=== PATIENT | female | born 1995 | race African-American/Black ===

== ENCOUNTER 2017-02-13 21:05 | Emergency (ER) | payer MEDICAID ==
[~2017-02-13] VITALS: Ht 152.4 cm; Wt 42.0 kg
[~2017-02-13 21:05] MED LIST: IRON
[2017-02-13 22:45] VITALS: BP 123/58
[2017-02-13] MEDS ORDERED: ACETAMINOPHEN 325MG TABLET PO ONE (22:45)
[2017-02-13 23:32] LABS: HCG SCREEN POSITIVE
[2017-02-13 23:40] LABS: CLARITY URINE CLEAR (CLEAR); COLOR URINE YELLOW (YELLOW); GLUCOSE URINE NEGATIVE (NEGATIVE); KETONES URINE NEGATIVE (NEGATIVE); LEUKOCYTE ESTERASE URINE 2+ (NEGATIVE); NITRITE URINE NEGATIVE (NEGATIVE); OCCULT BLOOD URINE 2+ (NEGATIVE); PH URINE 7.5 (4.5-8.0); PROTEIN URINE NEGATIVE (NEGATIVE); SPECIFIC GRAVITY URINE 1.024 (1.005-1.030)
[2017-02-14 00:13] LABS: SQUAMOUS EPITHELIAL CELL URINE FEW /lpf (RARE/1+)
[2017-02-14 00:28] LABS: BACTERIA URINE 1+
[2017-02-17 04:17] LABS: CHLAMYDIA TRACHOMATIS NAA Negative (Negative); NEISSERIA GONORRHOEAE NAA Negative (Negative)
== END 2017-02-14 01:35 | disposition home or self-care (01) ==
LOC: ER 21:06
DX: O26.899 Other specified pregnancy related conditions, unspecified trimester (principal); N76.0 Acute vaginitis
CPT/HCPCS: 81001; 84703; 87210; 87491; 87591; 99284; Z7610

== ENCOUNTER 2017-07-02 13:40 | Emergency (ER) | payer MEDICAID ==
[~2017-07-02] VITALS: Ht 152.4 cm; Wt 42.0 kg
[2017-07-02] MEDS ORDERED: ACETAMINOPHEN 325MG TABLET PO ONE (17:45)
[2017-07-02 18:01] LABS: BASOPHILS % 0.3 % (0.0-2.0); EOSINOPHILS % 1.4 % (0.0-5.0); HEMATOCRIT. 32.4 % (36.0-48.0); HEMOGLOBIN. 10.9 g/dL (12.0-16.0); LYMPHOCYTES % 23.3 % (20.0-50.0); MEAN CORPUSCULAR HEMOGLOBIN 27.9 pg (28.0-32.0); MEAN CORPUSCULAR VOLUME 82.6 fL (81.0-99.0); MEAN PLATELET VOLUME 8.9 fl (7.4-10.4); MONOCYTES % 6.1 % (2.0-8.0); NEUTROPHILS % 68.9 % (40.0-76.0); PLATELET 212 x1000/uL (130-400); RED BLOOD CELL COUNT 3.92 mill/uL (4.2-5.4); RED CELL DISTRIBUTION WIDTH 11.6 % (11.6-14.6)
[2017-07-02 18:24] LABS: CLARITY URINE CLEAR (CLEAR); COLOR URINE YELLOW (YELLOW); GLUCOSE URINE NEGATIVE (NEGATIVE); KETONES URINE TRACE (NEGATIVE); LEUKOCYTE ESTERASE URINE 1+ (NEGATIVE); NITRITE URINE NEGATIVE (NEGATIVE); OCCULT BLOOD URINE NEGATIVE (NEGATIVE); PROTEIN URINE NEGATIVE (NEGATIVE); SPECIFIC GRAVITY URINE 1.017 (1.005-1.030); UROBILINOGEN URINE 0.2 E.U./dL (0.2-1.0)
[2017-07-02 20:10] VITALS: BP 107/55
== END 2017-07-02 20:23 | disposition home or self-care (01) ==
LOC: ER 15:23
DX: O23.42 Unspecified infection of urinary tract in pregnancy, second trimester (principal); N39.0 Urinary tract infection, site not specified; Z3A.17 17 weeks gestation of pregnancy
CPT/HCPCS: 36415; 76805; 81001; 81025; 84702; 85025; 99285; Z7610

== ENCOUNTER 2017-08-02 10:48 | Observation (INO) | payer OTHER, MEDICAID ==
[2017-08-02] MEDS ORDERED: PNV1TABL76 MT (12:09)
== END 2017-08-02 12:00 | disposition home or self-care (01) ==
LOC: L&D 10:48
PROVIDERS: ADMIT Obstetrics & Gynecology; ATTEND Obstetrics & Gynecology
DX: O36.8120 Decreased fetal movements, second trimester, not applicable or unspecified (principal); O26.892 Other specified pregnancy related conditions, second trimester; R10.9 Unspecified abdominal pain; Z3A.21 21 weeks gestation of pregnancy
CPT/HCPCS: 99281; G0378

== ENCOUNTER 2017-09-28 17:49 | Emergency (ER) | payer MEDICAID ==
[~2017-09-28] VITALS: Ht 162.6 cm; Wt 47.0 kg
[~2017-09-28 17:49] MED LIST changes: +PNV1TABL76 MT
[2017-09-28] MEDS ORDERED: FAMOTIDINE 20MG/2ML VIAL IV STA (18:19)
[2017-09-28] MEDS ORDERED: ONDANSETRON HCL 4MG/2ML VIAL IV STA (18:19)
[2017-09-28] MEDS ORDERED: MAGNESIUM/ALUMINUM HYDROXIDE/SIMETHICONE 30ML UDC PO STA (18:19)
[2017-09-28] MEDS ORDERED: SODIUM CHLORIDE 0.9% 1,000 ML IV ONE (18:19)
[2017-09-28] MEDS ORDERED: MORPHINE SULFATE 4 MG/ML CPJ (NOT FOR IM USE) IV ONE (18:30)
[2017-09-28] MEDS ORDERED: MORPHINE SULFATE 10 MG/ML CPJ ONE (19:08)
[2017-09-28 19:21] LABS: BASOPHILS % 0.3 % (0.0-2.0); EOSINOPHILS % 0.6 % (0.0-5.0); HEMATOCRIT. 32.7 % (36.0-48.0); HEMOGLOBIN. 10.9 g/dL (12.0-16.0); LYMPHOCYTES % 15.2 % (20.0-50.0); MEAN CORPUSCULAR HEMOGLOBIN 28.4 pg (28.0-32.0); MEAN CORPUSCULAR VOLUME 85.2 fL (81.0-99.0); MEAN PLATELET VOLUME 10.1 fl (7.4-10.4); MONOCYTES % 4.7 % (2.0-8.0); NEUTROPHILS % 79.2 % (40.0-76.0); PLATELET 145 x1000/uL (130-400); RED BLOOD CELL COUNT 3.84 mill/uL (4.2-5.4); RED CELL DISTRIBUTION WIDTH 12.4 % (11.6-14.6)
[2017-09-28 19:36] LABS: CARBON DIOXIDE 21 mEq/L (21-32); CHLORIDE 106 mEq/L (98-107); TROPONIN I < 0.02 ng/mL (0.00-0.04)
[2017-09-28 19:37] LABS: D-DIMER 5.8 mg/L FEU (<0.50); INR 0.9; PROTHROMBIN TIME 9.6 sec (9.4-11.6)
[2017-09-28 19:49] LABS: B-HCG QUANTITATIVE 85220 mIU/mL (<3)
[2017-09-28 22:36] LABS: CLARITY URINE CLEAR (CLEAR); COLOR URINE YELLOW (YELLOW); GLUCOSE URINE NEGATIVE (NEGATIVE); KETONES URINE NEGATIVE (NEGATIVE); LEUKOCYTE ESTERASE URINE NEGATIVE (NEGATIVE); NITRITE URINE NEGATIVE (NEGATIVE); OCCULT BLOOD URINE TRACE (NEGATIVE); PROTEIN URINE 2+ (NEGATIVE); SPECIFIC GRAVITY URINE 1.011 (1.005-1.030); UROBILINOGEN URINE 0.2 E.U./dL (0.2-1.0)
[2017-09-28] MEDS ORDERED: ONDANSETRON HCL 4MG/2ML VIAL IV ONE (22:45)
[2017-09-28] MEDS ORDERED: BUTORPHANOL TARTRATE 2 MG/ML VIAL IM ONE (22:45)
[2017-09-28 22:46] LABS: *AMPHETAMINES SCREEN URINE NEGATIVE (NEGATIVE); *BARBITURATES SCREEN URINE NEGATIVE (NEGATIVE); *BENZODIAZEPINES SCREEN URINE NEGATIVE (NEGATIVE); *COCAINE SCREEN URINE NEGATIVE (NEGATIVE); CANNABINOID URINE SCREEN NEGATIVE (NEGATIVE); METHADONE URINE SCREEN NEGATIVE (NEGATIVE); PHENCYCLIDINE URINE SCREEN NEGATIVE (NEGATIVE)
[2017-09-28 23:06] LABS: OPIATES URINE SCREEN PRESUMTIVE POSITIVE (NEGATIVE)
[2017-09-28 23:45] VITALS: BP 116/79
== END 2017-09-28 23:55 | disposition home or self-care (01) ==
LOC: ER 18:31
DX: O99.613 Diseases of the digestive system complicating pregnancy, third trimester (principal); O20.0 Threatened abortion; Z3A.30 30 weeks gestation of pregnancy
CPT/HCPCS: 36415; 76705; 76805; 80053; 80305; 81001; 83690; 83880; 84484; 84702; 85025; 85379; 85610; 86886; 86901; 93005; 96361; 96365; 96372; 96375; 96376; 99285; J0595; J2270; J2405; J3490; J7030

== ENCOUNTER 2017-10-16 16:22 | Inpatient (IN) | payer MEDICAID ==
[~2017-10-16] VITALS: Ht 165.1 cm; Wt 50.3 kg
[2017-10-16] MEDS ORDERED: ACETAMINOPHEN 500MG TABLET PO NR (17:00)
[2017-10-16] MEDS: LACTATED RINGERS 1,000 ML IV SCH (17:13)
[2017-10-16 17:25] LABS: BASOPHILS % 0.5 % (0.0-2.0); EOSINOPHILS % 0.6 % (0.0-5.0); HEMATOCRIT. 38.2 % (36.0-48.0); HEMOGLOBIN. 12.8 g/dL (12.0-16.0); LYMPHOCYTES % 24.5 % (20.0-50.0); MEAN CORPUSCULAR HEMOGLOBIN 28.5 pg (28.0-32.0); MEAN CORPUSCULAR VOLUME 85.2 fL (81.0-99.0); MEAN PLATELET VOLUME 10.5 fl (7.4-10.4); NEUTROPHILS % 68.4 % (40.0-76.0); PLATELET 179 x1000/uL (130-400); RED BLOOD CELL COUNT 4.48 mill/uL (4.2-5.4); RED CELL DISTRIBUTION WIDTH 12.9 % (11.6-14.6)
[2017-10-16 17:26] LABS: CLARITY URINE CLOUDY (CLEAR); COLOR URINE YELLOW (YELLOW); KETONES URINE NEGATIVE (NEGATIVE); LEUKOCYTE ESTERASE URINE NEGATIVE (NEGATIVE); NITRITE URINE NEGATIVE (NEGATIVE); OCCULT BLOOD URINE 1+ (NEGATIVE); PH URINE 5.5 (4.5-8.0); PROTEIN URINE 4+ (NEGATIVE); UROBILINOGEN URINE 0.2 E.U./dL (0.2-1.0)
[2017-10-16 17:28] LABS: CHLORIDE 106 mEq/L (98-107)
[2017-10-16 17:30] LABS: INR 0.9; PARTIAL THROMBOPLASTIN TIME 27.9 sec (23.4-31.0); PROTHROMBIN TIME 9.7 sec (9.4-11.6)
[2017-10-16 17:33] LABS: CARBON DIOXIDE 24 mEq/L (21-32)
[2017-10-16 17:37] LABS: *AMPHETAMINES SCREEN URINE NEGATIVE (NEGATIVE); *BARBITURATES SCREEN URINE NEGATIVE (NEGATIVE); *BENZODIAZEPINES SCREEN URINE NEGATIVE (NEGATIVE); *COCAINE SCREEN URINE NEGATIVE (NEGATIVE); CANNABINOID URINE SCREEN NEGATIVE (NEGATIVE); METHADONE URINE SCREEN NEGATIVE (NEGATIVE); OPIATES URINE SCREEN NEGATIVE (NEGATIVE); PHENCYCLIDINE URINE SCREEN NEGATIVE (NEGATIVE)
[2017-10-16] MEDS ORDERED: LABETALOL 5MG/ML SYR 20 MG/4 ML SYRINGE IV NR (17:45)
[2017-10-16] MEDS ORDERED: MAGNESIUM 4 G PREMIX 100 ML IV NR (17:51)
[2017-10-16] MEDS ORDERED: BETAMETHASONE ACET/BETAMET 30 MG/5 ML VIAL IM NR (18:00)
[2017-10-16] MEDS: MAGNESIUM 20 G PREMIX (L & D) 500 ML IV SCH (18:40)
[2017-10-16] MEDS: LABETALOL HCL 20MG/4ML CARPUJECT IV PRN (20:52)
[2017-10-16 23:20] LABS: HEPATITIS B SURFACE ANTIGEN NEGATIVE; RUBELLA IGG 27.7 IU/mL (4.99-10)
[2017-10-17] MEDS: ACETAMINOPHEN 325MG TABLET PO PRN ×2 (05:28→11:30)
[2017-10-17] MEDS: MAGNESIUM 20 G PREMIX (L & D) 500 ML IV SCH (08:40)
[2017-10-17] MEDS: LABETALOL HCL 100MG TABLET PO SCH ×2 (13:42→20:44)
[2017-10-17] MEDS ORDERED: BETAMETHASONE ACET/BETAMET 30 MG/5 ML VIAL IM NR (18:00)
[2017-10-17 18:09] LABS: CREATININE URINE (RAW) 46.4 mg/dl
[2017-10-17] MEDS: LACTATED RINGERS 1,000 ML IV SCH (18:52)
[2017-10-18] MEDS: LACTATED RINGERS 1,000 ML IV SCH ×2 (03:29→21:04)
[2017-10-18 05:06] LABS: HEMATOCRIT 30.9 % (36.0-48.0); HEMOGLOBIN 10.1 g/dL (12.0-16.0); MEAN CORPUSCULAR HEMOGLOBIN 27.9 pg (28.0-32.0); MEAN CORPUSCULAR VOLUME 85.3 fL (81.0-99.0); PLATELET 185 x1000/uL (130-400); RED BLOOD CELL COUNT 3.63 mill/uL (4.2-5.4); RED CELL DISTRIBUTION WIDTH 12.8 % (11.6-14.6)
[2017-10-18 05:22] LABS: CARBON DIOXIDE 26 mEq/L (21-32); CHLORIDE 105 mEq/L (98-107)
[2017-10-18] MEDS: LABETALOL HCL 100MG TABLET PO SCH ×2 (08:59→21:04)
[2017-10-18] MEDS: ACETAMINOPHEN 325MG TABLET PO PRN (15:06)
[2017-10-18 19:03] LABS: CLARITY URINE CLEAR (CLEAR); COLOR URINE YELLOW (YELLOW); KETONES URINE NEGATIVE (NEGATIVE); LEUKOCYTE ESTERASE URINE NEGATIVE (NEGATIVE); NITRITE URINE NEGATIVE (NEGATIVE); OCCULT BLOOD URINE 3+ (NEGATIVE); PROTEIN URINE 4+ (NEGATIVE); SPECIFIC GRAVITY URINE 1.023 (1.005-1.030); UROBILINOGEN URINE 0.2 E.U./dL (0.2-1.0)
[2017-10-18] MEDS: LABETALOL HCL 20MG/4ML CARPUJECT IV PRN (19:05)
[2017-10-18] MEDS ORDERED: DIPHENHYDRAMINE HCL/ZINC ACET 28 GM CREAM TOP PRN (22:00)
[2017-10-19] MEDS: MAGNESIUM 20 G PREMIX (L & D) 500 ML IV SCH (03:43)
[2017-10-19 04:14] LABS: HEMATOCRIT. 32.2 % (36.0-48.0); HEMOGLOBIN. 10.5 g/dL (12.0-16.0); MEAN CORPUSCULAR HEMOGLOBIN 27.7 pg (28.0-32.0); PLATELET 176 x1000/uL (130-400); RED BLOOD CELL COUNT 3.78 mill/uL (4.2-5.4); RED CELL DISTRIBUTION WIDTH 13.1 % (11.6-14.6)
[2017-10-19 04:48] LABS: CARBON DIOXIDE 27 mEq/L (21-32); CHLORIDE 107 mEq/L (98-107)
[2017-10-19] MEDS: LACTATED RINGERS 1,000 ML IV SCH ×2 (06:14→15:13)
[2017-10-19] MEDS: LABETALOL HCL 100MG TABLET PO SCH ×2 (08:30→21:12)
[2017-10-19] MEDS: LABETALOL HCL 20MG/4ML CARPUJECT IV PRN ×3 (11:53→22:43)
[2017-10-19 13:43] LABS: PLATELET ESTIMATE NORMAL
[2017-10-19] MEDS: ACETAMINOPHEN 325MG TABLET PO PRN (17:58)
[2017-10-19] MEDS ORDERED: GLYCERIN/WITCH HAZEL LEAF MEDICATED PAD TOP PRN (21:45)
[2017-10-19] MEDS: BENZOCAINE/LANOLIN/ALOE VERA SPRAY TOP PRN (22:16)
[2017-10-19] MEDS ORDERED: DIPHENHYDRAMINE 50MG/ML VIAL IV NR (23:15)
[2017-10-20] MEDS: LACTATED RINGERS 1,000 ML IV SCH (02:20)
[2017-10-20] MEDS: LABETALOL HCL 20MG/4ML CARPUJECT IV PRN ×4 (02:51→11:59)
[2017-10-20] MEDS: BENZOCAINE/LANOLIN/ALOE VERA SPRAY TOP PRN (02:52)
[2017-10-20 07:24] LABS: HEMATOCRIT 36.6 % (36.0-48.0); HEMOGLOBIN 12.2 g/dL (12.0-16.0); MEAN CORPUSCULAR HEMOGLOBIN 28.5 pg (28.0-32.0); MEAN CORPUSCULAR VOLUME 85.9 fL (81.0-99.0); PLATELET 199 x1000/uL (130-400); RED BLOOD CELL COUNT 4.26 mill/uL (4.2-5.4); RED CELL DISTRIBUTION WIDTH 12.9 % (11.6-14.6)
[2017-10-20] MEDS: LABETALOL HCL 100MG TABLET PO SCH ×2 (07:42→21:50)
[2017-10-20 07:46] LABS: CARBON DIOXIDE 24 mEq/L (21-32); CHLORIDE 104 mEq/L (98-107)
[2017-10-20] MEDS: MAGNESIUM 20 G PREMIX (L & D) 500 ML IV SCH ×2 (10:07→16:26)
[2017-10-20] MEDS ORDERED: HYDRALAZINE 20MG/ML VIAL IV NR (12:24)
[2017-10-20] MEDS ORDERED: HYDRALAZINE 20MG/ML VIAL IV PRN (12:30)
[2017-10-20] MEDS ORDERED: MORPHINE SULFATE/PF 1MG/ML 10ML AMP ONE (14:25)
[2017-10-20] MEDS ORDERED: FENTANYL CITRATE/PF 50MCG/ML 2ML VIAL ONE (14:25)
[2017-10-20] MEDS ORDERED: CEFAZOLIN SODIUM 1000MG/VIAL ONE (15:11)
[2017-10-20] MEDS ORDERED: NALOXONE HCL 0.4 MG/ML 1ML VIAL IV PRN (15:30)
[2017-10-20] MEDS ORDERED: MAGNESIUM 20 G PREMIX (L & D) 500 ML IV SCH (15:49)
[2017-10-20] MEDS ORDERED: OXYTOCIN 10 UNITS/ML 1ML ONE (15:57)
[2017-10-20] MEDS ORDERED: ONDANSETRON HCL 4MG/2ML VIAL ONE (15:57)
[2017-10-20] MEDS ORDERED: BISACODYL 10MG SUPP PR PRN (16:00)
[2017-10-20] MEDS ORDERED: KETOROLAC 30MG/ML VIAL IV SCH (16:00)
[2017-10-20] MEDS ORDERED: ONDANSETRON HCL 4MG/2ML VIAL IV PRN (16:00)
[2017-10-20] MEDS ORDERED: LANOLIN OINT 0.25 GM TUBE TOP PRN (16:00)
[2017-10-20] MEDS ORDERED: HYDROCODONE/ACETAMINOPHEN 5/325MG TABLET PO PRN (16:00)
[2017-10-20] MEDS ORDERED: DEXT 5%/LR + PITOCIN 20UNITS/L 1,000 ML IV SCH (16:30)
[2017-10-20 21:00] VITALS: BP 144/107
[2017-10-20] MEDS ORDERED: LIDOCAINE HCL 4% CREAM 76GM TUBE TP SCH (21:00)
[2017-10-20] MEDS ORDERED: DIPHENHYDRAMINE 25MG CAPSULE PO PRN (21:00)
[2017-10-20 21:30] VITALS: BP 153/110
[2017-10-20] MEDS: KETOROLAC 30MG/ML VIAL IV SCH (21:49)
[2017-10-20 22:00] VITALS: BP 155/103
[2017-10-21] VITALS (11 sets, daily range): BP systolic 120–152; BP diastolic 86–113
[2017-10-21] MEDS: KETOROLAC 30MG/ML VIAL IV SCH ×3 (04:00→14:24)
[2017-10-21] MEDS ORDERED: TETANUS, DIPHTHERIA, PERTUSSIS VAC/PF 0.5ML (>7YR OLD) IM ONE (06:00)
[2017-10-21 06:36] LABS: BASOPHILS % 0.2 % (0.0-2.0); EOSINOPHILS % 0.2 % (0.0-5.0); HEMATOCRIT. 37.5 % (36.0-48.0); HEMOGLOBIN. 12.3 g/dL (12.0-16.0); LYMPHOCYTES % 11.9 % (20.0-50.0); MEAN CORPUSCULAR HEMOGLOBIN 28.2 pg (28.0-32.0); MEAN CORPUSCULAR VOLUME 85.9 fL (81.0-99.0); MEAN PLATELET VOLUME 10.4 fl (7.4-10.4); MONOCYTES % 5.7 % (2.0-8.0); PLATELET 206 x1000/uL (130-400); RED BLOOD CELL COUNT 4.37 mill/uL (4.2-5.4)
[2017-10-21] MEDS ORDERED: INFLUENZA VIRUS VACCINE 0.5ML SYR IM ONE (08:00)
[2017-10-21] MEDS: LABETALOL HCL 100MG TABLET PO SCH (08:54)
[2017-10-21] MEDS ORDERED: LABETALOL HCL 100MG TABLET PO NR (09:29)
[2017-10-21] MEDS: LACTATED RINGERS 1,000 ML IV SCH (10:13)
[2017-10-21] MEDS: LABETALOL HCL 200MG TABLET PO SCH ×2 (14:24→22:07)
[2017-10-21] MEDS: PRENATAL VIT/FE FUMARATE/FA TABLET PO SCH (18:18)
[2017-10-21] MEDS: FERROUS SULFATE 325MG TABLET PO SCH (18:18)
[2017-10-21] MEDS: BENZOCAINE/LANOLIN/ALOE VERA SPRAY TOP PRN (22:05)
[2017-10-21] MEDS: DOCUSATE SODIUM 100MG CAPSULE PO SCH (22:07)
[2017-10-21] MEDS: SIMETHICONE 80MG TABLET CHEW PO SCH (22:07)
[2017-10-22 00:15] VITALS: BP 137/94
[2017-10-22] MEDS ORDERED: MENTHOL/LANOLIN/CALAMINE/ZN OX OINT 71GM TOP PRN (01:00)
[2017-10-22] MEDS: HYDROCODONE/ACETAMINOPHEN 5/325MG TABLET PO PRN ×4 (04:12→20:41)
[2017-10-22] MEDS: LABETALOL HCL 200MG TABLET PO SCH ×3 (06:41→20:45)
[2017-10-22 08:02] VITALS: BP 152/99
[2017-10-22] MEDS: FERROUS SULFATE 325MG TABLET PO SCH (13:51)
[2017-10-22] MEDS: PRENATAL VIT/FE FUMARATE/FA TABLET PO SCH (13:51)
[2017-10-22] MEDS: SIMETHICONE 80MG TABLET CHEW PO SCH ×2 (13:52→20:39)
[2017-10-22 16:20] VITALS: BP 154/105
[2017-10-22 19:45] VITALS: BP 156/107
[2017-10-22] MEDS: DOCUSATE SODIUM 100MG CAPSULE PO SCH (20:39)
[2017-10-22 22:00] VITALS: BP 147/97
[2017-10-23] VITALS (7 sets, daily range): BP systolic 140–172; BP diastolic 66–108
[2017-10-23] MEDS: OXYCODONE HCL/ACETAMINOPHEN 5/325MG TABLET PO PRN ×2 (04:05→17:30)
[2017-10-23] MEDS: IBUPROFEN 400MG TABLET PO PRN (04:05)
[2017-10-23] MEDS: LABETALOL HCL 200MG TABLET PO SCH ×3 (07:15→22:08)
[2017-10-23] MEDS ORDERED: LABETALOL HCL 200MG TABLET PO NR (08:55)
[2017-10-23] MEDS: FERROUS SULFATE 325MG TABLET PO SCH (09:04)
[2017-10-23] MEDS: PRENATAL VIT/FE FUMARATE/FA TABLET PO SCH (09:04)
[2017-10-23] MEDS: SIMETHICONE 80MG TABLET CHEW PO SCH ×2 (09:04→22:10)
[2017-10-23] MEDS: ACETAMINOPHEN 325MG TABLET PO PRN (11:02)
[2017-10-23] MEDS: HYDROCODONE/ACETAMINOPHEN 5/325MG TABLET PO PRN (18:52)
[2017-10-23] MEDS: DOCUSATE SODIUM 100MG CAPSULE PO SCH (22:10)
[2017-10-24] VITALS (8 sets, daily range): BP systolic 133–156; BP diastolic 88–105
[2017-10-24] MEDS: HYDROCODONE/ACETAMINOPHEN 5/325MG TABLET PO PRN ×2 (03:23→16:33)
[2017-10-24] MEDS: LABETALOL HCL 200MG TABLET PO SCH ×3 (05:51→21:30)
[2017-10-24] MEDS: FERROUS SULFATE 325MG TABLET PO SCH ×3 (07:48→20:27)
[2017-10-24] MEDS: PRENATAL VIT/FE FUMARATE/FA TABLET PO SCH (07:48)
[2017-10-24] MEDS: SIMETHICONE 80MG TABLET CHEW PO SCH ×3 (07:49→20:26)
[2017-10-24] MEDS: IBUPROFEN 400MG TABLET PO PRN ×2 (07:49→15:41)
[2017-10-24] MEDS: OXYCODONE HCL/ACETAMINOPHEN 5/325MG TABLET PO PRN ×2 (11:43→20:27)
[2017-10-24] MEDS: DOCUSATE SODIUM 100MG CAPSULE PO SCH (20:27)
[2017-10-24] MEDS ORDERED: BACITRACIN ZINC 15GM TUBE TOP SCH (22:00)
[2017-10-25] MEDS: HYDROCODONE/ACETAMINOPHEN 5/325MG TABLET PO PRN ×2 (00:24→06:35)
[2017-10-25 05:09] VITALS: BP 156/109
[2017-10-25] MEDS: LABETALOL HCL 200MG TABLET PO SCH (05:42)
[2017-10-25 08:00] VITALS: BP 140/88
[2017-10-25 12:00] VITALS: BP 134/84
== END 2017-10-25 15:20 | disposition home or self-care (01) | DRG 540 ==
LOC: OBSVTOIN 16:22 → L&D 16:22 → 7EST PP/OB 10-20 20:08
PROVIDERS: ADMIT Specialist; ATTEND Obstetrics & Gynecology
PROC: 10D00Z1 Extraction of Products of Conception, Low, Open Approach (ICD-10-PCS; principal; 2017-10-20 14:58)
PROC: 3E0234Z Introduction of Serum, Toxoid and Vaccine into Muscle, Percutaneous Approach (ICD-10-PCS; 2017-10-21)
DX: O14.14 Severe pre-eclampsia complicating childbirth (principal); O60.14X0 Preterm labor third trimester with preterm delivery third trimester, not applicable or unspecified; O36.5930 Maternal care for other known or suspected poor fetal growth, third trimester, not applicable or unspecified; O16.4 Unspecified maternal hypertension, complicating childbirth; D64.9 Anemia, unspecified; O99.02 Anemia complicating childbirth; R77.2 Abnormality of alphafetoprotein; O76 Abnormality in fetal heart rate and rhythm complicating labor and delivery; O12.14 Gestational proteinuria, complicating childbirth; O99.62 Diseases of the digestive system complicating childbirth; K80.20 Calculus of gallbladder without cholecystitis without obstruction; Z3A.32 32 weeks gestation of pregnancy; Z37.0 Single live birth; Z23 Encounter for immunization
CPT/HCPCS: 36415; 76805; 76818; 80053; 80305; 81001; 82575; 83735; 84156; 84550; 85007; 85025; 85027; 85384; 85610; 85730; 86592; 86703; 86762; 86850; 86900; 86920; 87340; 88307; 93970; 99281; G0378; J0360; J0690; J0702; J1200; J1885; J2274; J2405; J2590; J3010; J3475; J3490; J7120; A4315